=== PATIENT | female | born 2000 ===

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

== ENCOUNTER 2018-03-30 19:32 | Emergency (ER) | payer MEDICAID ==
[2018-03-30 19:32] VITALS: BMI 28.5
[2018-03-30 19:48] VITALS: BP 121/78; PULSE 99; RESP 18; TEMP 99.4; O2SAT 99
[2018-03-30] MEDS ORDERED: Lidocaine 5% Patch TD STA (20:15)
[2018-03-30] MEDS ORDERED: Lidocaine 5% Patch TD ONE (20:37)
--- NOTE | 2018-03-30 21:57 | C.PDOC ---
History Of Present Illness 18 year old female presents to the ED complaining low back pain for one week. 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 She denies any trauma or injuries. She denies weakness, tingling, or numbness. Time Seen by Provider: 03/30/18 19:58 Chief Complaint (Nursing): Back Pain History Per: Patient History/Exam Limitations: no limitations Onset/Duration Of Symptoms: Days Current Symptoms Are (Timing): Still Present Quality Of Discomfort: "Pain" Previous Symptoms: None Associated Symptoms: None Past Medical History Reviewed: Historical Data, Nursing Documentation, Vital Signs Vital Signs: Last Vital Signs Temp 99.4 F 03/30/18 19:46 Pulse 99 H 03/30/18 19:46 Resp 18 03/30/18 19:46 BP 121/78 03/30/18 19:46 Pulse Ox 99 03/30/18 19:46 - Medical History PMH: No Chronic Diseases Denies: Chronic Kidney Disease Other Surgeries: Hx of surgeries Family History: States: No Known Family Hx - Social History Hx Tobacco Use: No Hx Alcohol Use: No Hx Substance Use: No - Immunization History Hx Tetanus Toxoid Vaccination: No Hx Influenza Vaccination: No Hx Pneumococcal Vaccination: No Review Of Systems Except As Marked, All Systems Reviewed And Found Negative. Musculoskeletal: Positive for: Back Pain Neurological: Negative for: Weakness, Numbness Physical Exam - Physical Exam Appears: Non-toxic Skin: Warm, Dry Head: Normacephalic Eye(s): bilateral: Normal Inspection Nose: Normal Oral Mucosa: Moist Neck: Normal ROM Chest: Symmetrical Cardiovascular: Rhythm Regular Respiratory: Normal Breath Sounds Back: No CVA Tenderness, Other (tenderness to LS spine ) ED Course And Treatment O2 Sat by Pulse Oximetry: 99 (RA) Pulse Ox Interpretation: Normal - Other Rad LS spine xray X-Ray: Interpreted by Me Interpretation: no lesions, no fx, no DJD Progress Note: Patient treated with Toradol. Lidoderm patch applied to lower back. XR of LS spine ordered - Negative. On reassessment, patient reports feel better. Patient instructed to follow up with PMD. Disposition - Disposition Referrals: Non [facility] Provider, [Primary Care Provider] - Disposition: HOME/ ROUTINE Disposition Time: 22:00 Condition: STABLE Additional Instructions: Follow up with PMD within 1-2 days. Return to ED if feel worse. Prescriptions: Cyclobenzaprine [Cyclobenzaprine HCl] 10 mg PO TID #15 tab Lidocaine 5% [Lidoderm] 1 patch TP DAILY #30 patch Ibuprofen [Motrin Tab] 600 mg PO Q8 #30 tab Instructions: Low Back Pain (DC) Forms: [facility] (Nepali), School Excuse - Clinical Impression Clinical Impression: Low back pain - PA / TIMBER SURVEYOR / Resident Statement MD/DO has reviewed & agrees with the documentation as recorded. - Scribe Statement The provider has reviewed the documentation as recorded by the Scribbryan Garcia All medical record entries made by the Felicitas were at my direction and personally dictated by me. I have reviewed the chart and agree that the record accurately reflects my personal performance of the history, physical exam, medical decision making, and the department course for this patient. I have also personally directed, reviewed, and agree with the discharge instructions and disposition.
--- NOTE | 2018-03-31 08:41 | RAD ---
Date of service: 03/30/2018 PROCEDURE: Radiographs of the Lumbar Spine. HISTORY: low back pain COMPARISON: No prior. FINDINGS: BONES: Normal alignment. No listhesis. No fracture. DISC SPACES: Unremarkable. OTHER FINDINGS: Moderate stool-retention in right colon IMPRESSION: No fracture or osseous lytic lesion appreciated. Disc spaces preserved.
== END 2018-03-30 22:13 | disposition home or self-care (01) ==
LOC: SUPCPDRO 19:32 → C.ER 19:32
DX: M54.5 Low back pain (principal)
CPT/HCPCS: 72100; 96372; 99283; J1885